=== PATIENT | male | born 1960 | race Caucasian/White ===

== ENCOUNTER 2020-03-09 10:36 | Emergency (ER) | payer OTHER ==
[2020-03-09] MEDS ORDERED: HYDROCODONE/ACETAMINOPHEN 5-325 MG TABLET PO ONE (10:54)
[2020-03-09] MEDS ORDERED: DIPH/PERTUSS(ACELL)/TETANUS VAC/PF 0.5 ML SYR (>=10YO) IM ONE (10:54)
[2020-03-09] MEDS ORDERED: BUPIVACAINE HCL 0.5 % INJ/PF 30 ML SDV INJ ONE (10:55)
[2020-03-09] MEDS ORDERED: CEPHALEXIN 500 MG CAPSULE PO ONE (10:56)
--- NOTE | 2020-03-09 10:57 | ER Document Report ---
HPI - HPI Patient complains to provider of: Crush injury to finger Time Seen by Provider: 03/09/20 10:47 Pain Level: 3 Context: Patient states that he was attempting to move a septic tank on the bed of a truck. Patient states that the weight shifted and his finger got crushed between 2 boards. Patient is right-hand dominant. Patient with injury to the right fourth finger. 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 Lives with: Family Family History: Reviewed & Not Pertinent Renal/ Medical History: Reports: Hx Benign Prostatic Hyperplasia Past Surgical History: Reports: Other - Eye surgery, prostate biopsy Vertical Provider Document - CONSTITUTIONAL Agree With Documented VS: Yes Exam Limitations: No Limitations General Appearance: WD/WN, No Apparent Distress - HEENT HEENT: Atraumatic, Normocephalic - NECK Neck: Normal Inspection - RESPIRATORY Respiratory: No Respiratory Distress - CARDIOVASCULAR Pulses: Normal: Radial - MUSCULOSKELETAL/EXTREMETIES Musculoskeletal/Extremeties: Tender - Tenderness to the right fourth finger distal phalanx with laceration just proximal to the nailbed. Patient unable to fully extend the fourth finger. - NEURO Level of Consciousness: Awake, Alert, Appropriate Motor/Sensory: negative: No Motor Deficit Notes: Patient unable to extend the right fourth finger DIP joint - DERM Integumentary: Warm, Dry, Laceration - 2 cm laceration to dorsal aspect of right fourth finger Course - Re-evaluation Re-evalutation: 03/09/20 13:[address] Friedman, Dr Friedman to bedside to assist with wound repair. 03/09/20 13:14 Patient advised of concern regarding open fracture as well as tendon injury giv en patient's limited extension of the distal phalanx of the right fourth finger. Patient advised he will need to follow-up with a hand surgeon for further management. - Vital Signs Vital signs: Temp Pulse Resp BP Pulse Ox 98.2 F 66 20 160/70 H 100 03/09/20 10:43 03/09/20 10:43 03/09/20 10:43 03/09/20 10:43 03/09/20 10:43 - Diagnostic Test Radiology reviewed: Image reviewed, Reports reviewed Procedures - Immobilization Right Finger 4th digit Pre-Proc Neuro Vasc Exam: Normal Immobilizer type: Finger splint (Static) Performed by: Provider assisted, PCT Post-Proc Neuro Vasc Exam: Normal Alignment checked and good: Yes - Laceration/Wound Repair Right Finger 4th digit Wound length (cm): 2 Wound's Depth, Shape: Irregular Laceration pre-procedure: Shur-Clens applied Anesthetic type: 0.5% Bupivacaine Wound explored: Clean Wound Repaired With: Sutures Suture Size/Type: 5:0, 4:0, Nylon Number of Sutures: 5 Post-procedure wound care: Sterile dressing applied, Splint applied Post-procedure NV exam normal: No - limited ability to extend distal phalanx Complications: No Notes: 03/09/20 13:13 4-0 nylon sutures placed in medial and lateral aspects of the laceration, 5-0 FS2, 3 sutures placed to central portion of laceration per Dr. Friedman Hands back picture: 1 - lac Discharge - Discharge Clinical Impression: Tendon injury Injury, crush, finger Qualifiers: Encounter type: initial encounter Qualified Code(s): S67.10XA - Crushing injury of unspecified finger(s), initial encounter Finger laceration Qualifiers: Encounter type: initial encounter Finger: ring finger Damage to nail status: without damage Foreign body presence: without foreign body Laterality: right Qualified Code(s): S61.214A - Laceration without foreign body of right ring finger without damage to nail, initial encounter Finger fracture, right Qualifiers: Encounter type: initial encounter Finger: ring finger Fracture type: open Phalanx: distal Fracture alignment: displaced Qualified Code(s): S62.634B - Displaced fracture of distal phalanx of right ring finger, initial encounter for open fracture Condition: Stable Disposition: HOME, SELF-CARE Instructions: Crush Injury ([facility]), Fractured Finger ([facility]), Laceration Care ([facility]), Prophylactic Antibiotic ([facility]), Tendon Laceration ([facility]), Tetanus Immunization Given ([facility]) Additional Instructions: Return immediately for any new or worsening symptoms Followup with your primary care provider, call tomorrow to make a followup appointment Follow-up with orthopedic hand specialist for further management regarding tendon injury as well as open fracture follow-up. Call tomorrow to make a follow-up appointment Prescriptions: Cephalexin Monohydrate [Keflex 500 mg Capsule] 500 mg PO Q6H 5 Days #20 capsule Hydrocodone/Acetaminophen [Sharps 5-325 mg Tablet] 1 tab PO Q6 PRN #12 tablet PRN Reason: Referrals: SARAH RIOS DO [ACTIVE STAFF] - Follow up tomorrow
--- NOTE | 2020-03-09 11:35 | RADIOLOGY REPORT (SQ) ---
EXAM DESCRIPTION: FINGER RIGHT IMAGES COMPLETED DATE/TIME: 03/09/2020 11:23 am REASON FOR STUDY: crush injury R 4th finger COMPARISON: None. NUMBER OF VIEWS: Three views. TECHNIQUE: AP, lateral, and oblique images acquired of the right fourth finger. LIMITATIONS: None. FINDINGS: MINERALIZATION: Normal. BONES: Slightly displaced transverse fracture of the distal phalanx. No worrisome bone lesions. SOFT TISSUES: No soft tissue swelling. No foreign body. OTHER: No other significant finding. IMPRESSION: SLIGHTLY DISPLACED TRANSVERSE FRACTURE OF THE DISTAL PHALANX OF THE RIGHT 4TH FINGER. COMMENT: SITE OF TRAUMA/COMPLAINT MARKED/STAMP COMPLETED: YES. TECHNICAL DOCUMENTATION: JOB ID: [id number] [email or web address] All Rights Reserved Reading location - IP/workstation name: [email or web address]
[2020-03-09 13:37] VITALS: BP 143/78
== END 2020-03-09 13:42 | disposition home or self-care (01) ==
LOC: ER 10:36
DX: S62.634B Displaced fracture of distal phalanx of right ring finger, initial encounter for open fracture (principal); W23.1XXA Caught, crushed, jammed, or pinched between stationary objects, initial encounter; Z23 Encounter for immunization
CPT/HCPCS: 99283; 90471; 73140; 90715; 12001; J3490